=== PATIENT | female | born 1940 | race Caucasian/White ===

== ENCOUNTER 2017-10-27 16:40 | Emergency (ER) | payer MEDICARE, BC ==
[2017-10-27] MEDS ORDERED: Sodium Chloride 0.9% 10 ML Syringe FLUSH PRN (17:03)
[2017-10-27] MEDS ORDERED: Ondansetron 4 MG/2 ML SDV IVPUSH ONE (17:03)
[2017-10-27] MEDS ORDERED: Sodium Chloride 0.9% 2.5 ML Syringe FLUSH PRN (17:03)
[2017-10-27] MEDS ORDERED: Sodium Chloride 0.9% 1,000 ML IV ONE (17:03)
--- NOTE | 2017-10-27 17:17 | EDM.PDOC ---
ED HPI GENERAL MEDICAL PROBLEM - General Chief Complaint: Gastrointestinal Problem Stated Complaint: PER PT; SHE CAN'T KEEP ANYTHING DOWN Time Seen by Provider: 10/27/17 17:04 - History of Present Illness INITIAL COMMENTS - FREE TEXT/NARRATIVE: HISTORY AND PHYSICAL: History of present illness: Patient 77-year-old female with no significant past medical history has had intermittent diarrhea 1 month plus she has seen her private medical doctor for this was evaluated her and refer to gastroenterology for which his appointment this month she's here today with increased weakness feeling like she may be dehydrated been no significant abdominal pain no fever no chills no chest pain shortness breath or other concern. Review of systems: As per history of present illness and below otherwise all systems reviewed and negative. Past medical history: As per history of present illness and as reviewed below otherwise noncontributory. Surgical history: As per history of present illness and as reviewed below otherwise noncontributory. Social history: No reported history of drug or alcohol abuse. Family history: As per history of present illness and as reviewed below otherwise noncontributory. Physical exam: HEENT: Atraumatic, normocephalic, pupils reactive, negative for conjunctival pallor or scleral icterus, mucous membranes dry, throat clear, neck supple, nontender, trachea midline. Lungs: Clear to auscultation, breath sounds equal bilaterally, chest nontender. Heart: S1S2, regular, negative for clicks, rubs, or JVD. Abdomen: Soft, nondistended, nontender. Negative for masses or hepatosplenomegaly. Negative for costovertebral tenderness. Pelvis: Stable nontender. Genitourinary: Deferred. Rectal: Deferred. Extremities: Atraumatic, negative for cords or calf pain. Neurovascular unremarkable. Neuro: Awake, alert, oriented. Cranial nerves II through XII unremarkable. Cerebellum unremarkable. Motor and sensory unremarkable throughout. Exam nonfocal. Diagnostics: CBC CMP UA urine culture and sensitivity stool for C&S O&P and C. difficile chest x-ray EKG CT abdomen and pelvis Therapeutics: Normal saline 1 L bolus Zofran 4 mg IV when necessary Impression: #1 diarrhea #2 dehydration Definitive disposition and diagnosis as appropriate pending reevaluation and review of above. - Related Data Allergies Allergy/AdvReac Type Severity Reaction Status Date / Time Dairy Products Allergy Diarrhea Verified 10/27/17 16:50 Gluten Allergy Abdominal Uncoded 10/27/17 16:50 Pain Home Meds: Home Meds Aspirin [Low Dose Aspirin EC] 1 tab PO DAILY 02/22/15 [History] Hydrochlorothiazide/Losartan [Hyzaar 50-12.5 MG] 1 tab PO ASDIRECTED 02/22/15 [ History] Nortriptyline 1 tab PO BEDTIME 02/22/15 [History] Omeprazole Magnesium [Prilosec Otc] 1 tab PO DAILY PRN 02/22/15 [History] Past Medical History Cardiovascular History: Reports: Hypertension Gastrointestinal History: Reports: GERD Other Gastrointestinal History: Heartburn/GERD treats with OTC Prilosec, Abdominal pain, change is bowel habits, 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: Other Dermatologic History: Current irritated area above upper lip, appointment with [employer] near future - Past Surgical History HEENT Surgical History: Reports: Tonsillectomy Other GI Surgeries/Procedures: Colonoscopy x 3 prior Female Surgical History: Reports: Hysterectomy, Tubal Ligation Social & Family History - Family History Family Medical History: Noncontributory - Tobacco Use Smoking Status *Q: Never Smoker - Caffeine Use Caffeine Use: Reports: None - Recreational Drug Use Recreational Drug Use: No ED ROS GENERAL - Review of Systems Review Of Systems: ROS reveals no pertinent complaints other than HPI. ED EXAM, GENERAL - Physical Exam Exam: See Below (Dictation) Course - Vital Signs Last Recorded V/S: Last Vital Signs Temp 36.8 C 10/27/17 16:48 Pulse 79 10/27/17 16:48 Resp 18 10/27/17 16:48 BP 151/70 H 10/27/17 16:48 Pulse Ox 99 10/27/17 16:48 - Orders/Labs/Meds Orders: Active Orders 24 hr Category Date Time Status Cardiac Monitoring [RC] . DIRECTED Care 10/27/17 17:02 Active EKG Documentation Completion [RC] STAT Care 10/27/17 17:02 Active Abdomen Pelvis wo Cont [CT] Stat Exams 10/27/17 17:03 Taken Chest 1V Frontal [CR] Stat Exams 10/27/17 17:03 Taken CDIFF TOX A+B [OP] Stat Lab 10/27/17 19:00 Received CULTURE STOOL + CAMPY+SHIGATOX [RM] Stat Lab 10/27/17 19:00 Received CULTURE URINE [RM] Stat Lab 10/27/17 18:40 Received UA W/MICROSCOPIC [URIN] Stat Lab 10/27/17 18:40 Ordered Sodium Chloride 0.9% [Saline Flush] Med 10/27/17 17:03 Active 10 ml FLUSH ASDIRECTED PRN Sodium Chloride 0.9% [Saline Flush] Med 10/27/17 17:03 Active 2.5 ml FLUSH ASDIRECTED PRN Saline Lock Insert [OM.PC] Stat Oth 10/27/17 17:02 Ordered Medication Orders Sodium Chloride (Saline Flush) 10 ml FLUSH ASDIRECTED PRN PRN Reason: Keep Vein Open Sodium Chloride (Saline Flush) 2.5 ml FLUSH ASDIRECTED PRN PRN Reason: Keep Vein Open Labs: Laboratory Tests 10/27/17 10/27/17 10/27/17 Range/Units 17:13 17:13 17:13 WBC 5.51 (4.0-11.0) K/uL RBC 4.34 (4.30-5.90) M/uL Hgb 12.6 (12.0-16.0) g/dL Hct 35.3 L (36.0-46.0) % MCV 81.3 (80.0-98.0) fL MCH 29.0 (27.0-32.0) pg MCHC 35.7 (31.0-37.0) g/dL RDW Std Deviation 38.1 (28.0-62.0) fl RDW Coeff of Francoise 13 (11.0-15.0) % Plt Count 217 (150-400) K/uL MPV 9.00 (7.40-12.00) fL Neut % (Auto) 57.6 (48.0-80.0) % Lymph % (Auto) 29.4 (16.0-40.0) % Coles % (Auto) 11.1 (0.0-15.0) % Eos % (Auto) 1.5 (0.0-7.0) % Baso % (Auto) 0.4 (0.0-1.5) % Neut # (Auto) 3.2 (1.4-5.7) K/uL Lymph # (Auto) 1.6 (0.6-2.4) K/uL Coles # (Auto) 0.6 (0.0-0.8) K/uL Eos # (Auto) 0.1 (0.0-0.7) K/uL Baso # (Auto) 0.0 (0.0-0.1) K/uL Nucleated RBC % 0.0 /100WBC Nucleated RBCs # 0 K/uL INR 0.96 Sodium 125 L (136-145) mmol/L Potassium 3.6 (3.5-5.1) mmol/L Chloride 89 L (98-107) mmol/L Carbon Dioxide 26.8 (21.0-32.0) mmol/L BUN 8 (7.0-18.0) mg/dL Creatinine 1.1 H (0.6-1.0) mg/dL Est Cr Clr Drug Dosing 38.82 mL/min Estimated GFR (MDRD) 47.9 ml/min Glucose 118 H (74-106) mg/dL Calcium 9.1 (8.5-10.1) mg/dL Total Bilirubin 0.4 (0.2-1.0) mg/dL AST 46 H (15-37) IU/L ALT 38 (14-63) IU/L Alkaline Phosphatase 101 (46-116) U/L Troponin I < 0.050 (0.000-0.056) ng/mL Total Protein 7.4 (6.4-8.2) g/dL Albumin 3.7 (3.4-5.0) g/dL Globulin 3.7 H (2.0-3.5) g/dL Albumin/Globulin Ratio 1.0 L (1.3-2.8) Amylase 74 (25-115) U/L Lipase 187 (73-393) U/L Urine Color Urine Appearance Urine pH (5.0-8.0) Ur Specific [place] (1.001-1.035) Urine Protein (NEGATIVE) mg/dL Urine Glucose (UA) (NEGATIVE) mg/dL Urine Ketones (NEGATIVE) mg/dL Urine Occult Blood (NEGATIVE) Urine Nitrite (NEGATIVE) Urine Bilirubin (NEGATIVE) Urine Urobilinogen (<2.0) EU/dL Ur Leukocyte Esterase (NEGATIVE) Urine RBC (0-2/HPF) Urine WBC (0-5/HPF) Ur Epithelial Cells (NONE-FEW) Amorphous Sediment (NEGATIVE) Urine Bacteria (NEGATIVE) 10/27/17 Range/Units 18:40 WBC (4.0-11.0) K/uL RBC (4.30-5.90) M/uL Hgb (12.0-16.0) g/dL Hct (36.0-46.0) % MCV (80.0-98.0) fL MCH (27.0-32.0) pg MCHC (31.0-37.0) g/dL RDW Std Deviation (28.0-62.0) fl RDW Coeff of Francoise (11.0-15.0) % Plt Count (150-400) K/uL MPV (7.40-12.00) fL Neut % (Auto) (48.0-80.0) % Lymph % (Auto) (16.0-40.0) % Coles % (Auto) (0.0-15.0) % Eos % (Auto) (0.0-7.0) % Baso % (Auto) (0.0-1.5) % Neut # (Auto) (1.4-5.7) K/uL Lymph # (Auto) (0.6-2.4) K/uL Coles # (Auto) (0.0-0.8) K/uL Eos # (Auto) (0.0-0.7) K/uL Baso # (Auto) (0.0-0.1) K/uL Nucleated RBC % /100WBC Nucleated RBCs # K/uL INR Sodium (136-145) mmol/L Potassium (3.5-5.1) mmol/L Chloride (98-107) mmol/L Carbon Dioxide (21.0-32.0) mmol/L BUN (7.0-18.0) mg/dL Creatinine (0.6-1.0) mg/dL Est Cr Clr Drug Dosing mL/min Estimated GFR (MDRD) ml/min Glucose (74-106) mg/dL Calcium (8.5-10.1) mg/dL Total Bilirubin (0.2-1.0) mg/dL AST (15-37) IU/L ALT (14-63) IU/L Alkaline Phosphatase (46-116) U/L Troponin I (0.000-0.056) ng/mL Total Protein (6.4-8.2) g/dL Albumin (3.4-5.0) g/dL Globulin (2.0-3.5) g/dL Albumin/Globulin Ratio (1.3-2.8) Amylase (25-115) U/L Lipase (73-393) U/L Urine Color YELLOW Urine Appearance SLT CLOUDY Urine pH 6.0 (5.0-8.0) Ur Specific [place] <= 1.005 (1.001-1.035) Urine Protein NEGATIVE (NEGATIVE) mg/dL Urine Glucose (UA) NEGATIVE (NEGATIVE) mg/dL Urine Ketones NEGATIVE (NEGATIVE) mg/dL Urine Occult Blood NEGATIVE (NEGATIVE) Urine Nitrite NEGATIVE (NEGATIVE) Urine Bilirubin NEGATIVE (NEGATIVE) Urine Urobilinogen 0.2 (<2.0) EU/dL Ur Leukocyte Esterase MODERATE (NEGATIVE) Urine RBC 0-3 (0-2/HPF) Urine WBC 0-4 (0-5/HPF) Ur Epithelial Cells MODERATE (NONE-FEW) Amorphous Sediment MODERATE (NEGATIVE) Urine Bacteria FEW (NEGATIVE) Meds: Medications Generic Name Dose Route Start Last Admin Trade Name Freq PRN Reason Stop Dose Admin Sodium Chloride 10 ml 10/27/17 17:03 Saline Flush FLUSH ASDIRECTED PRN Keep Vein Open Sodium Chloride 2.5 ml 10/27/17 17:03 Saline Flush FLUSH ASDIRECTED PRN Keep Vein Open Discontinued Medications Generic Name Dose Route Start Last Admin Trade Name Freq PRN Reason Stop Dose Admin Sodium Chloride 1,000 mls @ 999 mls/hr 10/27/17 17:03 10/27/17 17:20 Normal Saline IV 10/27/17 18:03 999 mls/hr STAT ONE Administration Ondansetron HCl 4 mg 10/27/17 17:03 10/27/17 17:20 Zofran IVPUSH 10/27/17 17:04 4 mg ONETIME ONE Administration Departure - Departure Time of Disposition: 19:18 Disposition: Home, Self-Care 01 Condition: Good Clinical Impression: Diarrhea - Discharge Information Referrals: PCP,None [Primary Care Provider] - Forms: ED Department Discharge Additional Instructions: The following information is given to patients seen in the emergency department who are being discharged to home. This information is to outline your options for follow-up care. We provide all patients seen in our emergency department with a follow-up referral. The need for follow-up, as well as the timing and circumstances, are variable depending upon the specifics of your emergency department visit. If you don't have a primary care physician on staff, we will provide you with a referral. We always advise you to contact your personal physician following an emergency department visit to inform them of the circumstance of the visit and for follow-up with them and/or the need for any referrals to a consulting specialist. The emergency department will also refer you to a specialist when appropriate. This referral assures that you have the opportunity for followup care with a specialist. All of these measure are taken in an effort to provide you with optimal care, which includes your followup. Under all circumstances we always encourage you to contact your private physician who remains a resource for coordinating your care. When calling for followup care, please make the office aware that this follow-up is from your recent emergency room visit. If for any reason you are refused follow-up, please contact the [facility] emergency department at and asked to speak to the emergency department charge nurse. Push fluids clear liquids as discussed follow-up primary medical doctor as needed as discussed keep gastroenterology appointment and return as needed as discussed - My Orders Last 24 Hours: My Active Orders 10/27/17 17:02 Cardiac Monitoring [RC] . DIRECTED EKG Documentation Completion [RC] STAT Saline Lock Insert [OM.PC] Stat 10/27/17 17:03 Abdomen Pelvis wo Cont [CT] Stat Chest 1V Frontal [CR] Stat Sodium Chloride 0.9% [Saline Flush] 10 ml FLUSH ASDIRECTED PRN Sodium Chloride 0.9% [Saline Flush] 2.5 ml FLUSH ASDIRECTED PRN 10/27/17 18:40 CULTURE URINE [RM] Stat UA W/MICROSCOPIC [URIN] Stat 10/27/17 19:00 CDIFF TOX A+B [OP] Stat CULTURE STOOL + CAMPY+SHIGATOX [RM] Stat - Assessment/Plan Last 24 Hours: My Active Orders 10/27/17 17:02 Cardiac Monitoring [RC] . DIRECTED EKG Documentation Completion [RC] STAT Saline Lock Insert [OM.PC] Stat 10/27/17 17:03 Abdomen Pelvis wo Cont [CT] Stat Chest 1V Frontal [CR] Stat Sodium Chloride 0.9% [Saline Flush] 10 ml FLUSH ASDIRECTED PRN Sodium Chloride 0.9% [Saline Flush] 2.5 ml FLUSH ASDIRECTED PRN 10/27/17 18:40 CULTURE URINE [RM] Stat UA W/MICROSCOPIC [URIN] Stat 10/27/17 19:00 CDIFF TOX A+B [OP] Stat CULTURE STOOL + CAMPY+SHIGATOX [RM] Stat
[2017-10-27 17:43] LABS: CHLORIDE,CL 89 mmol/L (98-107); SODIUM,NA 125 mmol/L (136-145)
[2017-10-27 19:19] VITALS: BP 148/76
--- NOTE | 2017-10-29 14:27 | CT ---
EXAM DATE: 10/27/17 PATIENT'S AGE: 77 Patient: ALFREDO TROY Facility: [place], [place] Site . Site : 1940 Study: CT Abdomen/Pelvis [id number] 5:38:24 PM Ordering Physician: Leyda Soler Final Report: Abdominal pain Comparison CT abdomen pelvis 10/13/2016. TECHNIQUE: Noncontrast CT abdomen pelvis. Findings: Heart size is normal. Mild basilar atelectasis. No effusion. Spleen unenhanced liver gallbladder pancreas adrenal glands are unremarkable. Atherosclerotic calcification of the aorta non aneurysmal. Kidneys appear unremarkable. Small fat containing umbilical hernia normal appendix. Urinary bladder appears unremarkable. Hysterectomy. Diverticulosis. Bowel is unremarkable. Normal appendix. No retroperitoneal abdominal pelvic adenopathy seen. No suspicious bony lesions. IMPRESSION: 1. No acute findings in the abdomen or pelvis. 2. Diverticulosis. Please note that all CT scans at this facility use dose modulation, iterative reconstruction, and/or weight-based dosing when appropriate to reduce radiation dose to as low as reasonably achievable. Dictated by Zulma Ortega MD @ Oct 27 2017 5:53PM (Electronic Signature) Report Signed by Proxy. JEANNINE
--- NOTE | 2017-10-29 14:28 | CR ---
EXAM DATE: 10/27/17 PATIENT'S AGE: 77 Patient: ALFREDO TROY Facility: [place], [place] Site . Site : 1940 Study: XRay Chest [id number]/9/2018 5:42:38 PM Ordering Physician: Leyda Soler Final Report: INDICATION: Shortness of breath. TECHNIQUE: PA chest. FINDINGS: Minimal left basilar subsegmental atelectasis/fibrosis. No consolidative infiltrates, pulmonary vascular congestion or pleural effusions with normal heart size. IMPRESSION: Minimal platelike subsegmental atelectasis or fibrosis left lung base. Dictated by Lucian Brink MD @ Oct 27 2017 5:46PM (Electronic Signature) Report Signed by Proxy. JEANNINE
== END 2017-10-27 19:33 | disposition home or self-care (01) ==
LOC: MW.ED 16:40
DX: E86.0 Dehydration (principal); R19.7 Diarrhea, unspecified; I10 Essential (primary) hypertension; K21.9 Gastro-esophageal reflux disease without esophagitis; Z79.899 Other long term (current) drug therapy; Z91.011 Allergy to milk products; Z91.09 Other allergy status, other than to drugs and biological substances
CPT/HCPCS: 36415; 71045; 74176; 80053; 81001; 82150; 83690; 84484; 85025; 85610; 87046; 87086; 87324; 93005; 96361; 96374; 99284; J2405; J7040; 87899; 99283

== ENCOUNTER 2021-09-13 22:03 | Emergency (ER) | payer MEDICARE, BC ==
[2021-09-13 22:41] VITALS: BP 145/67
[2021-09-13 23:50] VITALS: PULSE 84
== END 2021-09-13 23:48 | disposition home or self-care (01) ==
LOC: MW.ED 22:03
DX: M71.21 Synovial cyst of popliteal space [Baker], right knee (principal); I10 Essential (primary) hypertension; K21.9 Gastro-esophageal reflux disease without esophagitis; Z79.899 Other long term (current) drug therapy; Z91.011 Allergy to milk products; Z91.018 Allergy to other foods
CPT/HCPCS: 73562-26-RT; 73562-RT; 99283; 99283-25

== ENCOUNTER 2022-08-02 17:07 | Emergency (ER) | payer MEDICARE, BC ==
[2022-08-02 18:11] VITALS: BP 145/85; PULSE 89
== END 2022-08-02 18:40 | disposition home or self-care (01) ==
LOC: MW.ED 17:07
DX: S42.309A Unspecified fracture of shaft of humerus, unspecified arm, initial encounter for closed fracture (principal); I10 Essential (primary) hypertension; K21.9 Gastro-esophageal reflux disease without esophagitis; Z91.011 Allergy to milk products; Z91.018 Allergy to other foods; Z79.82 Long term (current) use of aspirin; Z79.899 Other long term (current) drug therapy
CPT/HCPCS: 99283

== ENCOUNTER 2023-09-22 12:25 | Emergency (ER) | payer MEDICARE, BC ==
[2023-09-22 13:13] VITALS: BP 155/72; PULSE 73
== END 2023-09-22 13:11 | disposition home or self-care (01) ==
LOC: MW.ED 12:25
DX: K04.7 Periapical abscess without sinus (principal); I10 Essential (primary) hypertension; K21.9 Gastro-esophageal reflux disease without esophagitis; Z75.8 Other problems related to medical facilities and other health care; Z91.011 Allergy to milk products; Z91.018 Allergy to other foods; Z79.82 Long term (current) use of aspirin; Z79.899 Other long term (current) drug therapy; Z90.710 Acquired absence of both cervix and uterus
CPT/HCPCS: 99282; 99283

== ENCOUNTER 2023-11-07 11:57 | Observation (INO) | payer MEDICARE, BC ==
[2023-11-07] MEDS: Ketorolac 30 MG/ML SDV IM ONE (12:59)
[2023-11-07] MEDS: Methocarbamol 750 MG Tab PO STA (13:00)
[2023-11-07] MEDS: Lidocaine 4% 1 each Patch TOP STA (13:01)
[2023-11-07 14:55] LABS: A/G RATIO 0.8 (0.9-1.6); ALBUMIN 3.4 g/dL (3.4-5.0); BILIRUBIN TOTAL 0.4 mg/dL (0.2-1.0); CALCIUM 9.9 mg/dL (8.5-10.1); CREATININE 1.2 mg/dL (0.6-1.0); EST CRCL DRUG DOSING (CG) 30.84 mL/min; POTASSIUM,K 3.9 mmol/L (3.5-5.1); PROTEIN TOTAL,TP 7.9 g/dL (6.4-8.2)
[2023-11-07 15:01] LABS: BASOPHILS ABSOLUTE AUTO 0.01 K/uL (0.00-0.20); BASOPHILS PERCENT AUTO 0.1 % (0.0-1.0); HEMATOCRIT 37.7 % (37.0-47.0); HEMOGLOBIN 12.7 g/dL (12.0-16.0); IMMATURE GRAN ABSOLUTE AUTO 0.06 K/uL (0.00-0.05); IMMATURE GRAN PERCENT AUTO 0.4 % (0.0-0.4); LYMPHOCYTES ABSOLUTE AUTO 0.51 K/uL (1.00-4.80); LYMPHOCYTES PERCENT AUTO 3.8 % (24.0-44.0); MEAN CORPUSCULAR HEMOGLOBIN 28.6 pg (28.0-32.0); MEAN CORPUSCULAR HGB CONC 33.7 g/dL (32.0-36.0); MEAN CORPUSCULAR VOLUME 84.9 fL (83.0-99.0); MEAN PLATELET VOLUME 10.3 fL (9.4-12.3); MONOCYTES ABSOLUTE AUTO 1.43 K/uL (0.00-0.80); MONOCYTES PERCENT AUTO 10.7 % (0.0-8.0); NEUTROPHILS ABSOLUTE AUTO 11.36 K/uL (1.80-7.70); PLATELET COUNT,PLT 254 K/uL (150-400); RED BLOOD CELL COUNT 4.44 M/uL (4.10-5.30); WHITE BLOOD CELL COUNT,WBC 13.37 K/uL (3.9-11.3)
[2023-11-07] MEDS: Acetaminophen/HYDROcodone 325-5 MG Tab PO ONE (15:06)
[2023-11-07] MEDS ORDERED: Hydrochlorothiazide/Losartan 12.5-50 mg Tab PO SCH (16:30)
[2023-11-07] MEDS: Sodium Chloride 0.9% 1,000 ML IV ONE (16:35)
[2023-11-07] MEDS ORDERED: Non-Formulary Medication 1 Each (Omeprazole Magnesium [Prilosec Otc] 20 MG Tablet.Dr) PO PRN (16:36)
[2023-11-07] MEDS ORDERED: Acetaminophen 325 MG Tab PO PRN (16:38)
[2023-11-07] MEDS: Nortriptyline 10 MG Cap PO SCH (21:22)
[2023-11-07 22:04] LABS: APPEARANCE,URINE CLEAR; BILIRUBIN,URINE NEGATIVE (NEGATIVE); COLOR,URINE YELLOW; GLUCOSE,URINE NEGATIVE (NEGATIVE); KETONES,URINE NEGATIVE (NEGATIVE); LEUKOCYTE ESTERASE,URINE SMALL (NEGATIVE); NITRITE,URINE POSITIVE (NEGATIVE); OCCULT BLOOD,URINE SMALL (NEGATIVE); PH,URINE 6.5 (5.0-8.0); PROTEIN,URINE 30 mg/dL (NEGATIVE); UROBILINOGEN,URINE 0.2 EU/dL (<2.0)
[2023-11-07 22:17] LABS: RBC,URINE 0-1 (0-2/HPF)
[2023-11-07 22:18] LABS: BACTERIA,URINE MANY (NEGATIVE); EPITHELIAL CELLS,URINE RARE (NONE-FEW)
[2023-11-07] MEDS: cefTRIAXone 1 GM in Sodium Chloride 0.9% 50 ML IV SCH (23:47)
[2023-11-08] MEDS: oxyCODONE 5 MG Tab PO PRN (01:26)
[2023-11-08 06:02] LABS: HEMATOCRIT 38.7 % (37.0-47.0); HEMOGLOBIN 12.8 g/dL (12.0-16.0); MEAN CORPUSCULAR HEMOGLOBIN 28.8 pg (28.0-32.0); MEAN CORPUSCULAR HGB CONC 33.1 g/dL (32.0-36.0); MEAN CORPUSCULAR VOLUME 87.2 fL (83.0-99.0); MEAN PLATELET VOLUME 10.1 fL (9.4-12.3); PLATELET COUNT,PLT 229 K/uL (150-400); RED BLOOD CELL COUNT 4.44 M/uL (4.10-5.30); WHITE BLOOD CELL COUNT,WBC 10.72 K/uL (3.9-11.3)
[2023-11-08 06:23] LABS: BLOOD UREA NITROGEN,BUN 18 mg/dL (7.0-18.0); CALCIUM 9.2 mg/dL (8.5-10.1); CARBON DIOXIDE,CO2 28.6 mmol/L (21.0-32.0); CHLORIDE,CL 102 mmol/L (98-107); GLUCOSE RANDOM 125 mg/dL (74-106); POTASSIUM,K 5.7 mmol/L (3.5-5.1); SODIUM,NA 139 mmol/L (136-145)
[2023-11-08 06:29] LABS: LYMPHOCYTES ABSOLUTE MAN 1.29 K/uL (1.00-4.80); LYMPHOCYTES PERCENT MAN 12 % (24-44); MONOCYTES ABSOLUTE MAN 1.29 K/uL (0.00-0.80); MONOCYTES PERCENT MAN 12 % (0-8); SEG NEUTROPHILS ABSOLUTE MAN 8.15 K/uL (1.80-7.70); SEG NEUTROPHILS PERCENT MAN 76 % (41-71)
[2023-11-08 06:40] LABS: ESTIMATED GFR 55 mL/min (>60)
[2023-11-08] MEDS: Lidocaine 4% 1 each Patch TOP SCH (07:34)
[2023-11-08] MEDS: Losartan 50 MG Tab PO SCH (08:35)
[2023-11-08] MEDS: Aspirin 81 MG Tab.EC PO SCH (08:35)
[2023-11-08] MEDS: Acetaminophen 325 MG Tab PO SCH (11:08)
[2023-11-08] MEDS: Acetaminophen 325 MG Tab ONE (12:08)
[2023-11-08] MEDS: Ibuprofen 400 MG Tab PO PRN (13:23)
[2023-11-08] MEDS: Baclofen 10 MG Tab PO PRN (19:07)
[2023-11-08] MEDS: Pantoprazole 40 MG Tab.CR PO PRN (19:07)
[2023-11-08] MEDS: Rosuvastatin 10 MG Tab PO SCH (21:16)
[2023-11-09] MEDS: amLODIPine 5 MG Tab PO SCH (07:54)
[2023-11-09] MEDS: Pantoprazole 40 MG Tab.CR PO SCH (12:43)
[2023-11-09 15:08] VITALS: BP 177/78; PULSE 85
== END 2023-11-09 16:05 | disposition home health service (06) ==
LOC: MW.ED 11:57 → MW.MS 16:21
PROVIDERS: ADMIT Internal Medicine; ATTEND Internal Medicine
DX: S32.10XA Unspecified fracture of sacrum, initial encounter for closed fracture (principal); N30.00 Acute cystitis without hematuria; M54.31 Sciatica, right side; M54.32 Sciatica, left side; I10 Essential (primary) hypertension; K21.9 Gastro-esophageal reflux disease without esophagitis; Z79.2 Long term (current) use of antibiotics; Z79.899 Other long term (current) drug therapy; Z79.82 Long term (current) use of aspirin; Z91.011 Allergy to milk products; W18.43XA Slipping, tripping and stumbling without falling due to stepping from one level to another, initial encounter
CPT/HCPCS: 36415; 72131; 80048; 80053; 81001; 83735; 84132; 84484; 85025; 87086; 87088; 87186; 93005; 96372; 97162; 97530; 99285; A9270; J0696; J1885; J3490; J7030; 93010; 96361; 96365; 96376; G0378

== ENCOUNTER 2023-11-13 14:21 | Inpatient (IN) | payer MEDICARE, BC ==
[2023-11-13] MEDS: methylPREDNISolone Sodium Succinate 125 MG/2 ML SDV IVPUSH STA (15:34)
[2023-11-14] MEDS: Acetaminophen 325 MG Tab PO SCH (00:37)
[2023-11-14] MEDS: oxyCODONE 5 MG Tab PO PRN (00:38)
[2023-11-14] MEDS: Baclofen 10 MG Tab PO PRN (00:39)
[2023-11-14 06:12] LABS: BASOPHILS ABSOLUTE AUTO 0.01 K/uL (0.00-0.20); BASOPHILS PERCENT AUTO 0.2 % (0.0-1.0); HEMATOCRIT 41.8 % (37.0-47.0); HEMOGLOBIN 13.8 g/dL (12.0-16.0); IMMATURE GRAN ABSOLUTE AUTO 0.05 K/uL (0.00-0.05); IMMATURE GRAN PERCENT AUTO 0.8 % (0.0-0.4); LYMPHOCYTES ABSOLUTE AUTO 0.59 K/uL (1.00-4.80); MEAN CORPUSCULAR HEMOGLOBIN 28.3 pg (28.0-32.0); MEAN CORPUSCULAR VOLUME 85.8 fL (83.0-99.0); MEAN PLATELET VOLUME 10.1 fL (9.4-12.3); MONOCYTES ABSOLUTE AUTO 0.19 K/uL (0.00-0.80); MONOCYTES PERCENT AUTO 2.9 % (0.0-8.0); NEUTROPHILS ABSOLUTE AUTO 5.71 K/uL (1.80-7.70); NEUTROPHILS PERCENT AUTO 87.1 % (41.0-71.0); PLATELET COUNT,PLT 286 K/uL (150-400); RED BLOOD CELL COUNT 4.87 M/uL (4.10-5.30); WHITE BLOOD CELL COUNT,WBC 6.55 K/uL (3.9-11.3)
[2023-11-14 06:35] LABS: CALCIUM 9.8 mg/dL (8.5-10.1); CARBON DIOXIDE,CO2 27.4 mmol/L (21.0-32.0); CREATININE 1.1 mg/dL (0.6-1.0); EST CRCL DRUG DOSING (CG) 33.65 mL/min; POTASSIUM,K 4.6 mmol/L (3.5-5.1)
[2023-11-14] MEDS: Pantoprazole 40 MG Tab.CR PO SCH (07:25)
[2023-11-14] MEDS: amLODIPine 5 MG Tab PO SCH (08:35)
[2023-11-14] MEDS: Lidocaine 4% 1 each Patch TOP SCH (11:12)
[2023-11-14] MEDS: DULoxetine 30 MG Cap PO SCH (11:12)
[2023-11-14] MEDS: Rosuvastatin 10 MG Tab PO SCH (20:32)
[2023-11-14] MEDS: Losartan 50 MG Tab PO SCH (20:32)
[2023-11-14] MEDS: Nortriptyline 25 MG Cap PO SCH (22:00)
[2023-11-15 06:03] LABS: BASOPHILS ABSOLUTE AUTO 0.02 K/uL (0.00-0.20); BASOPHILS PERCENT AUTO 0.2 % (0.0-1.0); EOSINOPHILS ABSOLUTE AUTO 0.05 K/uL (0.00-0.45); EOSINOPHILS PERCENT AUTO 0.4 % (0.0-6.0); HEMATOCRIT 39.8 % (37.0-47.0); HEMOGLOBIN 13.4 g/dL (12.0-16.0); IMMATURE GRAN ABSOLUTE AUTO 0.06 K/uL (0.00-0.05); IMMATURE GRAN PERCENT AUTO 0.5 % (0.0-0.4); LYMPHOCYTES ABSOLUTE AUTO 2.24 K/uL (1.00-4.80); LYMPHOCYTES PERCENT AUTO 18.1 % (24.0-44.0); MEAN CORPUSCULAR HEMOGLOBIN 28.3 pg (28.0-32.0); MEAN CORPUSCULAR HGB CONC 33.7 g/dL (32.0-36.0); MEAN CORPUSCULAR VOLUME 84.1 fL (83.0-99.0); MONOCYTES ABSOLUTE AUTO 1.29 K/uL (0.00-0.80); MONOCYTES PERCENT AUTO 10.4 % (0.0-8.0); NEUTROPHILS ABSOLUTE AUTO 8.72 K/uL (1.80-7.70); NEUTROPHILS PERCENT AUTO 70.4 % (41.0-71.0); PLATELET COUNT,PLT 287 K/uL (150-400); RED BLOOD CELL COUNT 4.73 M/uL (4.10-5.30); WHITE BLOOD CELL COUNT,WBC 12.38 K/uL (3.9-11.3)
[2023-11-15 06:23] LABS: CALCIUM 9.1 mg/dL (8.5-10.1); CARBON DIOXIDE,CO2 27.2 mmol/L (21.0-32.0); CREATININE 1.2 mg/dL (0.6-1.0); EST CRCL DRUG DOSING (CG) 30.84 mL/min; POTASSIUM,K 4.1 mmol/L (3.5-5.1)
[2023-11-16 05:57] LABS: BASOPHILS ABSOLUTE AUTO 0.02 K/uL (0.00-0.20); BASOPHILS PERCENT AUTO 0.3 % (0.0-1.0); EOSINOPHILS ABSOLUTE AUTO 0.07 K/uL (0.00-0.45); EOSINOPHILS PERCENT AUTO 0.9 % (0.0-6.0); HEMATOCRIT 40.7 % (37.0-47.0); HEMOGLOBIN 13.4 g/dL (12.0-16.0); IMMATURE GRAN ABSOLUTE AUTO 0.03 K/uL (0.00-0.05); IMMATURE GRAN PERCENT AUTO 0.4 % (0.0-0.4); LYMPHOCYTES ABSOLUTE AUTO 1.35 K/uL (1.00-4.80); LYMPHOCYTES PERCENT AUTO 17.2 % (24.0-44.0); MEAN CORPUSCULAR HEMOGLOBIN 28.4 pg (28.0-32.0); MEAN CORPUSCULAR HGB CONC 32.9 g/dL (32.0-36.0); MEAN CORPUSCULAR VOLUME 86.2 fL (83.0-99.0); MEAN PLATELET VOLUME 10.1 fL (9.4-12.3); MONOCYTES ABSOLUTE AUTO 0.78 K/uL (0.00-0.80); NEUTROPHILS ABSOLUTE AUTO 5.58 K/uL (1.80-7.70); NEUTROPHILS PERCENT AUTO 71.2 % (41.0-71.0); PLATELET COUNT,PLT 253 K/uL (150-400); RED BLOOD CELL COUNT 4.72 M/uL (4.10-5.30); WHITE BLOOD CELL COUNT,WBC 7.83 K/uL (3.9-11.3)
[2023-11-16 06:15] LABS: CALCIUM 9.4 mg/dL (8.5-10.1); CARBON DIOXIDE,CO2 29.5 mmol/L (21.0-32.0); CREATININE 1.1 mg/dL (0.6-1.0); EST CRCL DRUG DOSING (CG) 33.65 mL/min; POTASSIUM,K 4.4 mmol/L (3.5-5.1)
[2023-11-16] MEDS: Heparin Sodium 5,000 Units/ML Vial SUBCUT SCH (09:05)
[2023-11-16] MEDS: Cyclobenzaprine 5 MG Tab PO PRN (12:27)
[2023-11-16 16:24] LABS: APPEARANCE,URINE CLEAR; BILIRUBIN,URINE NEGATIVE (NEGATIVE); COLOR,URINE YELLOW; GLUCOSE,URINE NEGATIVE (NEGATIVE); KETONES,URINE NEGATIVE (NEGATIVE); LEUKOCYTE ESTERASE,URINE TRACE (NEGATIVE); NITRITE,URINE NEGATIVE (NEGATIVE); OCCULT BLOOD,URINE NEGATIVE (NEGATIVE); PH,URINE 5.5 (5.0-8.0); PROTEIN,URINE NEGATIVE (NEGATIVE); UROBILINOGEN,URINE 0.2 EU/dL (<2.0)
[2023-11-16 16:48] LABS: BACTERIA,URINE RARE (NEGATIVE); EPITHELIAL CELLS,URINE RARE (NONE-FEW); RBC,URINE 0-1 (0-2/HPF)
[2023-11-17 05:50] LABS: BASOPHILS ABSOLUTE AUTO 0.03 K/uL (0.00-0.20); BASOPHILS PERCENT AUTO 0.5 % (0.0-1.0); EOSINOPHILS ABSOLUTE AUTO 0.07 K/uL (0.00-0.45); EOSINOPHILS PERCENT AUTO 1.1 % (0.0-6.0); HEMATOCRIT 37.4 % (37.0-47.0); HEMOGLOBIN 12.4 g/dL (12.0-16.0); IMMATURE GRAN ABSOLUTE AUTO 0.03 K/uL (0.00-0.05); IMMATURE GRAN PERCENT AUTO 0.5 % (0.0-0.4); LYMPHOCYTES PERCENT AUTO 31.2 % (24.0-44.0); MEAN CORPUSCULAR HEMOGLOBIN 28.2 pg (28.0-32.0); MEAN CORPUSCULAR HGB CONC 33.2 g/dL (32.0-36.0); MEAN CORPUSCULAR VOLUME 85.2 fL (83.0-99.0); MEAN PLATELET VOLUME 10.2 fL (9.4-12.3); MONOCYTES ABSOLUTE AUTO 0.77 K/uL (0.00-0.80); NEUTROPHILS ABSOLUTE AUTO 3.52 K/uL (1.80-7.70); NEUTROPHILS PERCENT AUTO 54.7 % (41.0-71.0); PLATELET COUNT,PLT 238 K/uL (150-400); RED BLOOD CELL COUNT 4.39 M/uL (4.10-5.30); WHITE BLOOD CELL COUNT,WBC 6.42 K/uL (3.9-11.3)
[2023-11-17 06:06] LABS: CALCIUM 9.3 mg/dL (8.5-10.1); CARBON DIOXIDE,CO2 29.2 mmol/L (21.0-32.0); CREATININE 1.2 mg/dL (0.6-1.0); EST CRCL DRUG DOSING (CG) 30.84 mL/min; POTASSIUM,K 5.4 mmol/L (3.5-5.1)
[2023-11-18 05:43] LABS: BASOPHILS ABSOLUTE AUTO 0.02 K/uL (0.00-0.20); BASOPHILS PERCENT AUTO 0.3 % (0.0-1.0); EOSINOPHILS ABSOLUTE AUTO 0.06 K/uL (0.00-0.45); EOSINOPHILS PERCENT AUTO 0.9 % (0.0-6.0); HEMOGLOBIN 12.7 g/dL (12.0-16.0); IMMATURE GRAN ABSOLUTE AUTO 0.03 K/uL (0.00-0.05); IMMATURE GRAN PERCENT AUTO 0.4 % (0.0-0.4); LYMPHOCYTES ABSOLUTE AUTO 1.61 K/uL (1.00-4.80); LYMPHOCYTES PERCENT AUTO 23.2 % (24.0-44.0); MEAN CORPUSCULAR HEMOGLOBIN 28.3 pg (28.0-32.0); MEAN CORPUSCULAR HGB CONC 32.6 g/dL (32.0-36.0); MEAN CORPUSCULAR VOLUME 87.1 fL (83.0-99.0); MONOCYTES ABSOLUTE AUTO 0.84 K/uL (0.00-0.80); MONOCYTES PERCENT AUTO 12.1 % (0.0-8.0); NEUTROPHILS ABSOLUTE AUTO 4.38 K/uL (1.80-7.70); NEUTROPHILS PERCENT AUTO 63.1 % (41.0-71.0); PLATELET COUNT,PLT 243 K/uL (150-400); RED BLOOD CELL COUNT 4.48 M/uL (4.10-5.30); WHITE BLOOD CELL COUNT,WBC 6.94 K/uL (3.9-11.3)
[2023-11-18 07:11] LABS: CALCIUM 9.3 mg/dL (8.5-10.1); CARBON DIOXIDE,CO2 29.4 mmol/L (21.0-32.0); CREATININE 1.2 mg/dL (0.6-1.0); EST CRCL DRUG DOSING (CG) 30.84 mL/min; POTASSIUM,K 5.4 mmol/L (3.5-5.1)
[2023-11-18] MEDS: Sodium Chloride 0.9% 500 ML IV SCH (14:40)
[2023-11-19 06:17] LABS: HEMATOCRIT 37.3 % (37.0-47.0); HEMOGLOBIN 12.2 g/dL (12.0-16.0); MEAN CORPUSCULAR HGB CONC 32.7 g/dL (32.0-36.0); MEAN CORPUSCULAR VOLUME 85.7 fL (83.0-99.0); MEAN PLATELET VOLUME 10.1 fL (9.4-12.3); PLATELET COUNT,PLT 226 K/uL (150-400); RED BLOOD CELL COUNT 4.35 M/uL (4.10-5.30); WHITE BLOOD CELL COUNT,WBC 8.33 K/uL (3.9-11.3)
[2023-11-19 07:59] LABS: CALCIUM 9.3 mg/dL (8.5-10.1); CARBON DIOXIDE,CO2 28.5 mmol/L (21.0-32.0); CREATININE 1.1 mg/dL (0.6-1.0); EST CRCL DRUG DOSING (CG) 33.65 mL/min; MAGNESIUM 1.9 mg/dL (1.8-2.4); POTASSIUM,K 4.9 mmol/L (3.5-5.1)
[2023-11-19 09:12] VITALS: BP 132/63
[2023-11-19 09:17] VITALS: PULSE 66
== END 2023-11-19 11:08 | DRG 561 ==
LOC: MW.ED 14:21 → MW.MS 19:20 → OBSVTOIN 11-14 13:16 → MW.MS 11-14 17:53
PROVIDERS: ADMIT Internal Medicine; ATTEND Internal Medicine
DX: M53.3 Sacrococcygeal disorders, not elsewhere classified (principal); M79.651 Pain in right thigh; Z75.8 Other problems related to medical facilities and other health care; S32.10XD Unspecified fracture of sacrum, subsequent encounter for fracture with routine healing; E78.00 Pure hypercholesterolemia, unspecified; I10 Essential (primary) hypertension; K21.9 Gastro-esophageal reflux disease without esophagitis; Z79.82 Long term (current) use of aspirin; N28.9 Disorder of kidney and ureter, unspecified; Z91.018 Allergy to other foods; M54.31 Sciatica, right side; M54.32 Sciatica, left side; R41.0 Disorientation, unspecified; Z91.011 Allergy to milk products; Z91.048 Other nonmedicinal substance allergy status; Z79.51 Long term (current) use of inhaled steroids; Z79.899 Other long term (current) drug therapy; Z90.710 Acquired absence of both cervix and uterus; Z98.51 Tubal ligation status; Z90.89 Acquired absence of other organs
CPT/HCPCS: 36415; 80048; 85025; 96374; 96375; 96376; 97162; 99284; A9270 ×11; J2919; J3360 ×3; 81001; 83735; 85027; 87086; 97110-GP; 97165-GO; 97530-GP; G0378; J1644; J7040

== ENCOUNTER 2024-11-25 09:33 | Emergency (ER) | payer MEDICARE, BC ==
[2024-11-25 10:01] VITALS: BP 157/74; PULSE 84
== END 2024-11-25 10:41 | disposition home or self-care (01) ==
LOC: MW.ED 09:33
DX: L25.9 Unspecified contact dermatitis, unspecified cause (principal); E78.00 Pure hypercholesterolemia, unspecified; I10 Essential (primary) hypertension; Z91.011 Allergy to milk products; Z75.3 Unavailability and inaccessibility of health-care facilities; Z91.018 Allergy to other foods; Z79.899 Other long term (current) drug therapy
CPT/HCPCS: 99282